=== PATIENT | female | born 2000 | race African-American/Black ===

== ENCOUNTER 2022-03-22 12:46 | Emergency (ER) | payer MEDICAID, OTHER ==
[~2022-03-22] VITALS: Ht 160 cm; Wt 60.0 kg
[2022-03-22] MEDS ORDERED: HYDR50CA PO (13:10)
[2022-03-22] MEDS ORDERED: OLAN20TA34 PO (13:10)
[2022-03-22] MEDS ORDERED: ACETAMINOPHEN 325MG TABLET PO ONE (13:45)
[2022-03-22] MEDS ORDERED: ACET-2708 MT (14:23)
[2022-03-22 14:30] VITALS: BP 127/85
== END 2022-03-22 14:32 | disposition home or self-care (01) ==
LOC: ER 13:00
DX: S09.8XXA Other specified injuries of head, initial encounter (principal); Y08.89XA Assault by other specified means, initial encounter; Y93.89 Activity, other specified; Y92.89 Other specified places as the place of occurrence of the external cause; Y99.8 Other external cause status; F31.9 Bipolar disorder, unspecified; F20.9 Schizophrenia, unspecified
CPT/HCPCS: 81025; 99284